=== PATIENT | female | born 1965 | race Caucasian/White ===

== ENCOUNTER 2021-12-29 18:53 | Inpatient (IN) | payer MEDICARE, OTHER ==
[~2021-12-29] VITALS: Ht 162.6 cm; Wt 94.2 kg
[~2021-12-29 18:53] MED LIST: ASPI-12 PO; ATOR40TA28 PO; BUTA1CAP51 PO; DIAZ5TAB5 PO; DIPH50 PO; DOCU250C77 PO; DULO-113 PO; FAMO20 PO; GABA250S2 PO; LISI1TAB13 PO; LORA10TA60 PO; LOVA40TA2 PO; METF-446 PO; ONDA8TAB8 PO; PHENY100 PO; PROM-163 PO; QUET200T PO; SUMA25TA9 PO
[2021-12-29 19:46] LABS: BASOPHILS % (AUTO) 0.5 % (0.0-2.0); EOSINOPHILS % (AUTO) 2.2 % (1.0-6.0); HEMATOCRIT 38.4 % (36-46); HEMOGLOBIN 12.3 g/dL (12.0-16.0); LYMPHOCYTES % (AUTO) 29.7 % (22.0-44.0); MEAN CORPUSCULAR HEMOGLOBIN 24.9 pg (26.0-34.0); MEAN CORPUSCULAR VOLUME 78 fL (80-100); MONOCYTES # (AUTO) 0.6 K/uL (0.1-1.0); MONOCYTES % (AUTO) 8.4 % (2.0-9.0); NEUTROPHILS # (AUTO) 3.9 K/uL (1.8-7.7); NEUTROPHILS % (AUTO) 59.2 % (40.0-70.0); PLATELET COUNT (AUTO) 338 K/uL (150-450); RED BLOOD CELL COUNT(AUTO) 4.94 MIL/uL (4.00-5.20)
[2021-12-29 19:51] LABS: CREATININE 1.51 mg/dL (0.60-1.30)
[2021-12-29 19:58] LABS: ALBUMIN 3.6 g/dL (3.4-5.0); BILIRUBIN,TOTAL 0.2 mg/dL (0.1-1.0); TOTAL PROTEIN, SERUM 7.5 g/dL (6.4-8.2)
[2021-12-29 20:36] LABS: GLUCOSE,POINT OF CARE 258 MG/DL (70-110)
[2021-12-29] MEDS ORDERED: ASPIRIN 325 MG TABLET PO ONE (21:15)
[2021-12-29] MEDS ORDERED: NITROGLYCERIN 2% (1 GM=INCH) PACKET TP ONE (21:15)
[2021-12-29] MEDS ORDERED: 0.9% SODIUM CHLORIDE 10 ML SYRINGE IVP PRN (21:45)
[2021-12-29] MEDS ORDERED: ACETAMINOPHEN 325 MG TABLET PO PRN (21:45)
[2021-12-29] MEDS ORDERED: ONDANSETRON HCL 4 MG/2 ML VIAL IVP PRN (21:45)
[2021-12-29] MEDS ORDERED: SUMAtriptan SUCCINATE 25 MG TABLET PO PRN (21:45)
[2021-12-29] MEDS ORDERED: SUMAtriptan SUCCINATE 100 MG TABLET PO PRN (22:50)
[2021-12-30 00:52] VITALS: BP 90/56
[2021-12-30 04:58] VITALS: BP 112/60
[2021-12-30 07:40] VITALS: BP 120/61
[2021-12-30] MEDS ORDERED: MetFORMIN HCL 500 MG TABLET PO SCH (08:00)
[2021-12-30] MEDS: PHENYTOIN SODIUM 100 MG ER CAPSULE PO SCH ×2 (08:12→13:09)
[2021-12-30 08:32] LABS: CHOL/HDL RATIO 4.3 (3.9-5.7)
[2021-12-30 09:00] LABS: BASOPHILS % (AUTO) 0.7 % (0.0-2.0); EOSINOPHILS % (AUTO) 2.2 % (1.0-6.0); HEMATOCRIT 38.8 % (36-46); HEMOGLOBIN 12.5 g/dL (12.0-16.0); LYMPHOCYTES # (AUTO) 2.2 K/uL (1.0-4.8); LYMPHOCYTES % (AUTO) 28.6 % (22.0-44.0); MEAN CORPUSCULAR HEMOGLOBIN 24.9 pg (26.0-34.0); MEAN CORPUSCULAR HGB CONC 32.1 G/dL (31.0-37.0); MEAN CORPUSCULAR VOLUME 78 fL (80-100); MONOCYTES # (AUTO) 0.6 K/uL (0.1-1.0); MONOCYTES % (AUTO) 7.9 % (2.0-9.0); NEUTROPHILS # (AUTO) 4.8 K/uL (1.8-7.7); NEUTROPHILS % (AUTO) 60.6 % (40.0-70.0); PLATELET COUNT (AUTO) 339 K/uL (150-450); RED CELL DISTRIBUTION WIDTH 14.2 % (11.5-14.5)
[2021-12-30] MEDS ORDERED: HYDROCHLOROTHIAZIDE 25 MG TABLET PO SCH (09:00)
[2021-12-30] MEDS ORDERED: DIAZEPAM 5 MG TABLET PO SCH (09:00)
[2021-12-30] MEDS ORDERED: ASPIRIN 81 MG CHEWABLE TABLET PO SCH (09:00)
[2021-12-30] MEDS ORDERED: LOVASTATIN 20 MG TABLET PO SCH (09:00)
[2021-12-30] MEDS ORDERED: DULoxetine HCL 60 MG CAPSULE PO SCH (09:00)
[2021-12-30] MEDS ORDERED: QUEtiapine FUMARATE 200 MG TABLET PO SCH (09:00)
[2021-12-30] MEDS ORDERED: LISINOPRIL 20 MG TABLET PO SCH (09:00)
[2021-12-30] MEDS ORDERED: FAMOTIDINE 20 MG TABLET PO SCH (09:00)
[2021-12-30 09:25] LABS: CALCIUM, TOTAL 9.7 mg/dL (8.8-10.5); CREATININE 1.22 mg/dL (0.60-1.30)
[2021-12-30] MEDS ORDERED: DEXTROSE 50%-WATER 25 GM/50 ML SYRINGE IVP PRN (11:15)
[2021-12-30] MEDS ORDERED: INSULIN LISPRO 100 UNITS/ML SQ PRN (11:15)
[2021-12-30 11:40] VITALS: BP 102/63
[2021-12-30] MEDS ORDERED: INFLUENZA VIRUS VACCINE QVS 2022-23 (6MO+)/PF 60 MCG/0.5 ML SYRINGE IM. ONE (15:15)
[2021-12-30 19:16] LABS: GLUCOMETER DEV NAME(LOC) 5S.1B; GLUCOSE,POINT OF CARE 209 MG/DL (70-110)
[2021-12-30] MEDS ORDERED: ATORVASTATIN CALCIUM 40 MG TABLET PO SCH (21:00)
== END 2021-12-30 15:25 | disposition home or self-care (01) | DRG 311 ==
LOC: EMS 18:59 → 5S 22:05
PROVIDERS: ADMIT Internal Medicine; ATTEND Internal Medicine
DX: I20.0 Unstable angina (principal); E11.65 Type 2 diabetes mellitus with hyperglycemia; G25.0 Essential tremor; I10 Essential (primary) hypertension; J44.9 Chronic obstructive pulmonary disease, unspecified; F17.200 Nicotine dependence, unspecified, uncomplicated; E78.5 Hyperlipidemia, unspecified; E66.9 Obesity, unspecified; G40.909 Epilepsy, unspecified, not intractable, without status epilepticus; G43.909 Migraine, unspecified, not intractable, without status migrainosus; Z79.899 Other long term (current) drug therapy; Z68.35 Body mass index [BMI] 35.0-35.9, adult
CPT/HCPCS: 71045; 74176; 80048; 80053; 80061; 82962; 83690; 84484; 85025; 93005; 93306; 99285; 36415-L1; 36415-TC

== ENCOUNTER 2022-05-17 22:18 | Emergency (ER) | payer MEDICARE, OTHER ==
[~2022-05-17] VITALS: Ht 162.6 cm; Wt 81.8 kg
[~2022-05-17 22:18] MED LIST changes: -ASPI-12 PO; -DIPH50 PO; -GABA250S2 PO; -LISI1TAB13 PO; -LOVA40TA2 PO; +PHEN100C10 PO; -PHENY100 PO; -PROM-163 PO
[2022-05-17 22:39] VITALS: BP 119/69
[2022-05-17] MEDS ORDERED: SODIUM PHOS/SODIUM BIPHOS 133 ML ENEMA PR ONE (23:45)
== END 2022-05-18 00:16 | disposition home or self-care (01) ==
LOC: EMS 22:19
DX: K59.00 Constipation, unspecified (principal); J44.9 Chronic obstructive pulmonary disease, unspecified; E11.9 Type 2 diabetes mellitus without complications; I10 Essential (primary) hypertension; F17.210 Nicotine dependence, cigarettes, uncomplicated
CPT/HCPCS: 74018; 82962; 99285